=== PATIENT | male | born 1945 | race Caucasian/White ===

== ENCOUNTER 2016-10-25 04:25 | Inpatient (IN) | payer MEDICARE, OTHER ==
--- NOTE | ~2016-10-25 | DS ---
Unit #: [id number] #: [id number] Patient: ISAI MARIA [id number] [address] [place], [place] [address] [id number] I MR#: [id number] NAME: ISAI MARIA ROOM: 47 Age: 71 Sex: M Admission Date: 10/25/2016 : 1945 Discharge Date: 10/27/2016 Attending Physician: Brandon Encinas M.D. Primary Care Physician: No Primary Care Physician DISCHARGE SUMMARY REASON FOR ADMISSION Clinical suspicion for septic joint right wrist. HISTORY OF PRESENT ILLNESS/HOSPITAL COURSE The patient is a very pleasant 71-year-old male with a relatively unremarkable past medical history. Does not really follow with any particular primary care physician. He presented secondary to right wrist pain, as well as swelling, erythema. He was also noted to have a white count elevated to 17.4, elevated temperature of greater than 102. Clinical suspicion of septic joint was made; thus, he was admitted for the same. Through ER course and initial part of hospital stay the patient did receive vancomycin. ID consultation was obtained. After ID saw and evaluated the patient, they felt as though it was less likely to be septic joint and more likely to be gout. Thus, he was started on medications for gout. It was also noted that his creatinine level was elevated to 2.8. He did receive copious IV fluids through his hospital course while here. His creatinine currently stands at 1.6. It seems likely it is NSAID induced secondary to his increased NSAID use prior to admission. We also placed consultation to Dr. De Los Santos and associates for possible aspiration. Upon review and discussion with the patient, clinical suspicion of gout was made; however, ultimately it was decided no aspiration would be done. He did show improvement after receiving IV Solu-Medrol, as well as antibiotics, as mentioned above. However, in differential, certainly septic joint versus gout and/or the possibility of both do exist. Today he is clinically much improved. His white count currently stands at 8, his creatinine 1.6, as mentioned above. He has remained afebrile through his hospital course; thus, will favor gout as a final discharge diagnoses. At time of discharge he will follow up with his primary care physician in 7-10 days. FINAL DISCHARGE DIAGNOSES 1. Right wrist swelling/pain, likely gout. 2. Anemia, baseline approximately 11. 3. Acute on chronic kidney disease, likely stage 3 to 4 baseline, at discharge creatinine 1.6. DISCHARGE INSTRUCTIONS Patient to follow up with primary care physician in 7 to 10 days for repeat BMP, CBC, as well as to be set up as an outpatient for routine Unit #: [id number] #: [id number] Patient: CROW,ISAI screening, including colonoscopy and/or further evaluation. FINAL DISCHARGE MEDICATIONS 1. Medrol Dosepak, take as directed. 2. Tylenol 650 mg p.o. q.6 p.r.n. Dictated by... Malcolm Magallanes/alvaro TD: 10/29/2016 07:38 JOB #: [id number] DISCHARGE SUMMARY Page 1 of 1 X Brandon Encinas MD X DISCHARGE SUMMARY
--- NOTE | ~2016-10-25 | CO ---
Unit #: [id number] #: [id number] Patient: ISAI MARIA [id number] [address] [address] [id number] I MR#: [id number] NAME: ISAI MARIA ROOM: 558 Age: 71 Sex: M Admission Date: 10/25/2016 : 1945 Attending Physician: Brandon Encinas M.D. Primary Care Physician: Primary Care Physician No Consultation Date: 10/26/2016 CONSULTATION REPORT CHIEF COMPLAINT Right hand pain. HISTORY OF PRESENT ILLNESS The patient is a 71-year-old male, who was admitted with increasing right hand pain, swelling, and fever of 8 days duration. The patient states that he has a history of gout; although, he has never had aspiration-proven gout. He states that for the past 30 years, he has had intermittent pain and swelling in both hands and both feet. He is not on a gout medication. He states that 8 days ago, his right hand became swollen and tender with stiffness in his wrist and fingers. He did have a fall when he tripped on a curb about the same time as the initiation of the symptoms; although, his radiographs showed no evidence of fracture. He is admitted with a suspicion of either hand infection or gout. PAST MEDICAL HISTORY Otherwise remarkable for nothing else. He has smoked in the past, but quit smoking 30 years ago. He has a history of cataracts. HOME MEDICATIONS Occasional Advil. ALLERGIES None. PAST SURGICAL HISTORY The patient has had cataract extraction and a left ring finger partial amputation. SOCIAL HISTORY The patient is a nonsmoker. He drinks alcohol on the weekends. 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 He denies alcohol abuse. REVIEW OF SYSTEMS Otherwise unremarkable. PHYSICAL EXAMINATION VITAL SIGNS: Temperature 98.7, blood pressure 161/90, pulse is 72, respirations 16. GENERAL: This is an elderly male, who is alert, oriented, and cooperative. EXTREMITIES: Evaluation of the right hand demonstrates swelling of his interphalangeal joints of almost every finger. He has marked swelling of his index finger DIP joint. He is unable to make a fist. He can flex his Unit #: [id number] #: [id number] Patient: ISAI MARIA PIP joint about 50 degrees. Wrist dorsiflexion is 30 degrees, and palmar flexion is 30 degrees. He has no significant tenderness on range of motion of the wrist, because of moderate dorsal hand swelling, but no erythema. I am unable to elicit any point tenderness in the hand. Pulses are intact. Sensation is intact. Motor exam is otherwise normal. Evaluation of his left elbow demonstrates full range of motion. He has a large swollen olecranon bursa without erythema or warmth. There is no tenderness. He states that he has had this swelling for several years. DIAGNOSTIC STUDIES IMAGING STUDIES: Right hand x-rays show periarticular erosions of the middle finger and index finger distal interphalangeal joint consistent with gout. He also has degenerative arthritis of the thumb interphalangeal joint, metacarpal phalangeal joint, and carpometacarpal joint. There is a calcification of the radial artery. LABORATORY RESULTS: CBC today shows hemoglobin 10.9, white blood cell count of 10.3. CRP is 23. Chem-7 shows renal insufficiency with creatinine of 2 and BUN of 42. His uric acid is elevated at 11. IMPRESSION Probable right hand gout doubt infection. PLAN Although, the patient was admitted with leukocytosis and a fever, this is currently resolved and his hand shows no evidence of infection. He has an elevated creatinine and radiographic signs of gout. I therefore felt the patient did in fact have a gouty attack, I would recommend that he can be discharged with followup to see me in my office in the next couple of weeks. At that point, if the gouty attack is resolved, we will start him on some allopurinol. Dictated by.Malcolm Cho/shaheed TD: 10/26/2016 13:49 JOB #: [id number] CONSULTATION REPORT Page 1 of 1 X Rebecca De Los Santos MD X CONSULTATION REPORT
--- NOTE | ~2016-10-25 | HP ---
Unit #: [id number] #: [id number] Patient: ISAI MARIA [id number] [address] [address] [id number] I MR#: [id number] NAME: ISAI MARIA ROOM: 47 Age: 71 Sex: M Admission Date: 10/25/2016 : 1945 Attending Physician: Brandon Encinas M.D. Primary Care Physician: No Primary Care Physician HISTORY AND PHYSICAL REASON FOR ADMISSION Right hand cellulitis/possible septic joint. HISTORY OF PRESENT ILLNESS The patient is a 71-year-old male with no real primary care provider as an outpatient with a relatively unremarkable past medical history who presented with a 10-day history of right hand swelling, as well as discomfort with movement. He states in the past, approximately a year ago, he had a similar event where his right wrist/hand became swollen. He thought it was gout at that point in time. He subsequently took some Aleve, and it did resolve on its own. This time, however, he has been taking Aleve, as well as other yirg-zav-zisidki medications, with minimal relief. Therefore, he presented to the hospital for further evaluation. Initially when he presented, it was noted that his white count was elevated at 17.4. He also had an elevated lactic acid level mildly at 2.2. Of note, through routine laboratory studies, also noted was his creatinine of 2.8 with an unclear baseline, as he had never seen a primary care provider in the past. Initial laboratory studies also yielded a C-reactive protein of 23, a sed rate of 100. PAST MEDICAL HISTORY 1. Osteoarthritis. 2. Questionable history of gout. PAST SURGICAL HISTORY Left cataract. HOME MEDICATIONS None. ALLERGIES No known drug allergies. SOCIAL HISTORY The patient resides at home alone. He does not smoke. He drinks alcohol socially on the weekends only. No IV drug use and/or recreational drug use. REVIEW OF SYSTEMS Please see HPI. A 12-point review, otherwise, negative except for those positively noted in the HPI. PHYSICAL EXAMINATION Unit #: [id number] #: [id number] Patient: ISAI MARIA VITAL SIGNS: Temperature on and 102.6, pulse 119, respiratory rate 15, blood pressure 130/62. GENERAL APPEARANCE: The patient is a 71-year-old male lying comfortably in no acute distress. HEAD EXAM: Atraumatic, normocephalic. EAR EXAM: Tympanic membranes do not reveal any erythema or injection. NECK EXAM: Supple. CVS: S1, S2 without murmur. RESPIRATORY: Clear. GI/ABDOMEN: Nontender, nondistended. EXTREMITY EXAM: No evidence of lower extremity edema. No calf tenderness. Left upper extremity exam does reveal swollen area of bursitis versus cyst present over the left elbow. Right upper extremity exam yields swollen right hand with tenderness to palpation and decreased range of motion at the right wrist joint. There do not appear to be any open wounds. There are numerous tattoos present on bilateral upper extremities. ER COURSE The patient received Tylenol, normal saline, vancomycin, Zosyn. INITIAL ADMISSION DIAGNOSES 1. Right hand swelling, possible septic joint versus hand cellulitis. 2. Left elbow bursitis versus cyst. 3. Acute kidney injury, questionable chronic kidney disease. 4. Fever present on admission. 5. Tachycardia present on admission. PLAN 1. Admission to med/surg floor. 2. Continue vancomycin and Zosyn for now. 3. ID consultation for antibiotic evaluation especially in lieu of elevated inflammatory markers. 4. Orthopedic consultation for possible aspiration of aforementioned joint. Although the patient states he does have a prior history of gout, we have no verified records. Especially in light of his elevated white count, certainly consideration should be given for septic joint. Blood cultures have already been ascertained and are currently pending. 5. In regard to his acute kidney injury, we will start the patient on IV fluids, routine laboratory studies. Nephrology consultation may be considered if appropriate response is not achieved. 6. Further hospital course to follow. Dictated by Malcolm Magallanes/alvaro TD: 10/28/2016 08:32 JOB #: [id number] Unit #: [id number] #: [id number] Patient: ISAI MARIA HISTORY AND PHYSICAL Page 1 of 1 X Brandon Encinas MD HISTORY AND PHYSICAL
--- NOTE | ~2016-10-25 | CR142 ---
[facility] A Service of [facility] & [facility] RADIOLOGY TEXT RESULTS PATIENT: ISAI MARIA LOCATION: [facility] 558-01 : 43 UNIT #: [id number] AGE: [address]: Brandon Encinas MD SEX: M ORDER DR: [id number] [facility] [address] [place], [place] [address] [id number] MR#: [id number] Acc #: [id number] NAME: ISAI MARIA : 1945 SEX: M STUDY DATE/TIME: 10/25/2016 5:04 UNIT: [facility] ROOM: STUDY DESCRIPTION: CR Hand Min 3 Views Rt Attending Physician: Darrell Simms P.A.-C. Ordering Physician: Darrell Simms P.A.-C. Primary Care Physician: Primary Care Physician No MEDICAL IMAGING REPORT This report is preliminary unless electronic signature is present EXAM Right hand INDICATION Right hand swelling and pain for 9 days. FINDINGS Three views of the right hand were obtained. There is degenerative change at the first MCP joint and IP joint. There is degenerative change at the second DIP joint. The fingers are slightly flexed. There is marked degenerative change of the first carpometacarpal joint. IMPRESSION Degenerative changes at the first carpometacarpal joint, MCP joint and interphalangeal joint as well as in the second DIP joint. No fracture is visible. Dictated by... Waqas Daniels M.D. THIS IS AN ELECTRONICALLY VERIFIED REPORT Waqas Daniels M.D. at 10/25/2016 1:55 PM MITUL/jasmin TD: 10/25/2016 06:14 JOB #: [id number] MEDICAL IMAGING REPORT Page 1 of 1 COPY
--- NOTE | ~2016-10-25 | CR72 ---
[facility] A Service of [facility] & [facility] RADIOLOGY TEXT RESULTS PATIENT: ISAI MARIA LOCATION: [facility] 558-01 : 43 UNIT #: [id number] AGE: [address]: Brandon Encinas MD SEX: M ORDER DR: [id number] [facility] [address] [place], [place] [address] [id number] MR#: [id number] Acc #: [id number] NAME: ISAI MARIA : 1945 SEX: M STUDY DATE/TIME: 10/25/2016 5:03 UNIT: [facility] ROOM: STUDY DESCRIPTION: CR Chest Single View Portable Attending Physician: Darrell Simms P.A.-C. Ordering Physician: Darrell Simms P.A.-C. Primary Care Physician: Primary Care Physician No MEDICAL IMAGING REPORT This report is preliminary unless electronic signature is present EXAM Portable chest INDICATION Fever, weakness, right hand swelling and pain for 9 days. COMPARISON 04/15/2016. FINDINGS A portable view of the chest was obtained. The heart size and vascularity are normal. The lungs are clear. The bones are normal. IMPRESSION No active disease. Dictated by... Waqas Daniels M.D. THIS IS AN ELECTRONICALLY VERIFIED REPORT Waqas Daniels M.D. at 10/25/2016 1:55 PM MITUL/jasmin TD: 10/25/2016 06:12 JOB #: [id number] MEDICAL IMAGING REPORT Page 1 of 1 COPY
[~2016-10-25 04:25] MED LIST: ALEVE220 M1; BACTRIM DS TABL1 TA1 PO; CLINDAMYCIN HC300 MG PO; DECADRON PO; INDOCIN50 MG PO; NO MEDICATIONS
[2016-10-25 05:06] LABS: URINE SOURCE CLEAN CATCH
[2016-10-25 05:20] LABS: URINE APPEARANCE CLOUDY; URINE BLOOD 2+ (NEG); URINE COLOR DK YELLOW; URINE GLUCOSE NEG (NEG); URINE KETONE TRACE (NEG); URINE LEUKOCYTE ESTERASE TRACE (NEG); URINE NITRATE NEG (NEG); URINE PROTEIN 1+ (NEG); URINE SPECIFIC GRAVITY 1.023 (1.003-1.035)
[2016-10-25 05:21] LABS: URINE BACTERIA AUWI NEG (NEGATIVE); URINE SQUAMOUS EPITHELIAL CELL OCC /[HPF]
[2016-10-25 05:30] LABS: BASOPHIL# 0.1 X10e3 (0-0.3); BASOPHIL% 0.4 % (0-2.5); HEMATOCRIT 39.6 % (38.0-50.0); HEMOGLOBIN 13.2 gm/dL (13.0-16.0); LYMPHOCYTE# 1.3 X10e3 (1.0-3.5); LYMPHOCYTE% 7.6 % (17.0-45.0); MEAN CELL VOLUME 90.8 FL (83-96); MEAN CORPUSCULAR HEMOGLOBIN 30.2 PG (28-34); MEAN CORPUSCULAR HGB CONC 33.3 g/dL (30-36); MEAN PLATELET VOLUME 8.5 FL (6.5-11.5); MONOCYTE# 1.5 X10e3 (0-1.0); MONOCYTE% 8.4 % (3.0-12.0); NEUTROPHIL# 14.5 X10e3 (1.5-7.1); NEUTROPHIL% 83.6 % (40-75); PLATELET COUNT 238 X10e3 (140-420); RED BLOOD COUNT 4.36 X10e (3.90-5.60); RED CELL DISTRIBUTION WIDTH 13.1 % (11.0-15.5); WHITE BLOOD COUNT 17.4 X10e3 (4.0-10.5)
[2016-10-25 05:35] LABS: DIFF IND YES
[2016-10-25 06:01] LABS: CULTURE INDICATED? NO; URINE BILIRUBIN NEG (NEG)
[2016-10-25 06:03] LABS: U HYALINE CASTS AUWI 0-2 /[LPF]; URINE MUCUS PRESENT
[2016-10-25 06:05] LABS: UWBCS1 AUWI 0-2 (0-5)
[2016-10-25 06:06] LABS: URBCS1 AUWI 25-50 /[HPF] (0-2)
[2016-10-25 06:16] LABS: ALBUMIN SERUM 3.4 g/dL (3.5-5.0); BILIRUBIN, DIRECT 0.6 mg/dL (0.0-0.2); BILIRUBIN,INDIRECT 1.7 mg/dL (0.0-0.9); BILIRUBIN,TOTAL 2.3 mg/dL (0.2-2.0); BUN/CREATININE RATIO 13.21; CALCIUM SERUM 8.8 mg/dL (8.4-10.2); CREATININE SERUM 2.8 mg/dL (0.6-1.4); GLOM FILT RATE Estimated 21.4 mL/min (>60); POTASSIUM 4.3 mmol/L (3.5-5.1); PROTEIN TOTAL SERUM 7.9 g/dL (6.0-8.3)
[2016-10-25 06:17] LABS: PLATELET ESTIMATE NORMAL (NORMAL)
[2016-10-25 06:18] LABS: RBC NORMAL YES
[2016-10-25] MEDS ORDERED: NO MEDICATIONS (07:16)
[2016-10-25 10:46] LABS: AMPHETAMINE NEG (NEG); BARBITURATES NEG (NEG); BENZODIAZEPINES NEG (NEG); COCAINE NEG (NEG); MARIJUANA NEG (NEG); OPIATES POS (NEG); TRICYCLIC ANTIDEPRESSANTS NEG (NEG); U METHADONE NEG (NEG)
[2016-10-26 05:43] LABS: HEMATOCRIT 32.6 % (38.0-50.0); MEAN CELL VOLUME 91.1 FL (83-96); MEAN CORPUSCULAR HEMOGLOBIN 30.4 PG (28-34); MEAN CORPUSCULAR HGB CONC 33.4 g/dL (30-36); MEAN PLATELET VOLUME 9.2 FL (6.5-11.5); RED BLOOD COUNT 3.58 X10e (3.90-5.60); RED CELL DISTRIBUTION WIDTH 13.3 % (11.0-15.5); WHITE BLOOD COUNT 10.3 X10e3 (4.0-10.5)
[2016-10-26 06:15] LABS: HEMOGLOBIN 10.9 gm/dL (13.0-16.0)
[2016-10-26 06:17] LABS: CALCIUM SERUM 7.8 mg/dL (8.4-10.2); GLOM FILT RATE Estimated 32.2 mL/min (>60)
[2016-10-27 03:29] LABS: HEMATOCRIT 35.6 % (38.0-50.0); HEMOGLOBIN 11.8 gm/dL (13.0-16.0); MEAN CELL VOLUME 91.4 FL (83-96); MEAN CORPUSCULAR HEMOGLOBIN 30.3 PG (28-34); MEAN CORPUSCULAR HGB CONC 33.2 g/dL (30-36); MEAN PLATELET VOLUME 9.2 FL (6.5-11.5); RED BLOOD COUNT 3.9 X10e (3.90-5.60); RED CELL DISTRIBUTION WIDTH 13.3 % (11.0-15.5)
[2016-10-27 03:56] LABS: BUN/CREATININE RATIO 28.12; CALCIUM SERUM 8.3 mg/dL (8.4-10.2); CREATININE SERUM 1.6 mg/dL (0.6-1.4); GLOM FILT RATE Estimated 42.1 mL/min (>60)
[2016-10-27] MEDS ORDERED: MEDROL DOSEPAK4 MG (11:42)
== END 2016-10-27 11:54 | disposition home or self-care (01) | DRG 554 ==
LOC: CED 04:25 → CEDOF 07:10 → C5B 07:10 → CED 07:29 → CEDOF 07:29 → C5B 09:21 → C4C 10-26 17:30
PROVIDERS: Family Medicine; Physician Assistant
DX: M10.9 Gout, unspecified (principal); N17.9 Acute kidney failure, unspecified; M19.90 Unspecified osteoarthritis, unspecified site; R50.9 Fever, unspecified; R00.0 Tachycardia, unspecified; Z98.49 Cataract extraction status, unspecified eye; Z87.891 Personal history of nicotine dependence; D72.829 Elevated white blood cell count, unspecified
CPT/HCPCS: 36415; 71010; 73130; 80048; 80076; 80202; 80307; 81003; 83036; 83605; 84443; 84550; 85025; 85027; 85652; 86140; 87040; 96361; 96365; 96366; 99285; J2543; J2930; J3370